=== PATIENT | male | born 1990 | race American Indian/Alaskan Native ===

== ENCOUNTER 2017-07-09 18:20 | Emergency (ER) | payer OTHER ==
[2017-07-09] MEDS ORDERED: Bacitracin Oint 1 GM U/D Packet TOP ONE (18:40)
[2017-07-09] MEDS ORDERED: Lidocaine 1% 30 ML SDV INJECT ONE (18:40)
[2017-07-09 19:17] LABS: CHLORIDE,CL 107 mmol/L (101-111); SODIUM,NA 139 mmol/L (135-145)
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
== END 2017-07-09 19:52 | disposition home or self-care (01) ==
LOC: EDUNIT# 18:20 → DL.ED 18:20
DX: S81.812A Laceration without foreign body, left lower leg, initial encounter (principal); Z91.09 Other allergy status, other than to drugs and biological substances; X99.9XXA Assault by unspecified sharp object, initial encounter
CPT/HCPCS: 12005; 36415; 73590; 80053; 85025; 99283; G0480; 12015